=== PATIENT | male | born 1960 | race Hispanic/Latino ===

== ENCOUNTER 2018-08-30 23:17 | Emergency (ER) | payer SELFPAY ==
[2018-08-31] MEDS ORDERED: PROTONIX IV ONE (00:20)
[2018-08-31] MEDS ORDERED: ZOFRAN IV ONE (00:20)
[2018-08-31] MEDS ORDERED: NACL 0.9% 1000 ML 1,000 ML IV ONE (00:20)
--- NOTE | 2018-08-31 00:22 | Emergency Department Report ---
HPI - General Time Seen by Provider: 08/31/18 00:12 - HPI HPI: 58-year-old male presents to the emergency department via EMS from [place], where he is being treated for his psychiatric conditions, with complaint of nausea, vomiting, diarrhea and some abdominal discomfort. The patient says that it started off with copious diarrhea followed by the nausea and vomiting. He has vomited enough to where he has started to vomit up some blood. He denies any fever. He has a past medical history of hypertension and seizures. He is a tobacco smoker but denies any illicit drug use or any alcohol abuse history. He has not taken anything for his symptoms prior to arrival. ED Past Medical Hx - Medications Home Medications: Home Medications Medication Instructions Recorded Confirmed Last Taken Type Ondansetron [Zofran Odt] 4 mg PO Q8HR PRN #16 tab.annie 08/31/18 Unknown Rx RX: Omeprazole 20 mg PO BID #14 tablet. 08/31/18 Unknown Rx ED Review of Systems ROS: Stated complaint: VOMITING BLOOD Other details as noted in HPI Comment: All other systems reviewed and negative Constitutional: denies: chills, fever Eyes: denies: eye pain, vision change ENT: denies: ear pain, throat pain Respiratory: denies: cough, shortness of breath Cardiovascular: denies: chest pain, palpitations Gastrointestinal: abdominal pain, nausea, vomiting, diarrhea, hematemesis Genitourinary: denies: dysuria, discharge Musculoskeletal: denies: back pain, arthralgia Skin: denies: rash, lesions Neurological: denies: headache, weakness Physical Exam - Physical Exam Physical Exam: GENERAL: The patient is well-developed well-nourished. HEENT: Normocephalic. Atraumatic. Patient has moist mucous membranes. EYES: Extraocular motions are intact. Pupils are equal and reactive to light bilaterally. NECK: Supple. Trachea is midline. CHEST/LUNGS: Clear to auscultation. There is no respiratory distress noted. HEART/CARDIOVASCULAR: Regular. There is no tachycardia. There is no obvious murmur. ABDOMEN: Abdomen is soft, nontender. Patient has normal bowel sounds. There is no abdominal distention. SKIN: Skin is warm and dry. NEURO: The patient is awake, alert, and oriented. The patient is cooperative. The patient has no focal neurologic deficits. The patient has normal speech. MUSCULOSKELETAL: There is no tenderness or deformity. Patient has a cast on his right foot and lower extremity. ED Medical Decision Making - Lab Data Result diagrams: 08/31/18 00:46 08/31/18 00:46 - Radiology Data Radiology results: report reviewed, image reviewed interpreted by me: Chest x-ray does not show any pneumothorax, pleural effusion, pneumonia or obvio us focal consolidation. Abdominal x-ray shows nonspecific nonobstructive bowel gas PROCEDURE: CT ABDOMEN PELVIS WO CON TECHNIQUE: Computerized axial tomography of the abdomen and pelvis was performed without intravenous contrast. This study is performed without intravascular contrast material and its sensitivity for abdominal and pelvic pathology, including neoplasms, inflammatio n, abscess, free fluid, thrombosis, arterial dissection and infarction, is reduced compared with a contrast enhanced study. HISTORY: Abd pain, hematemesis COMPARISON: No prior studies are available for comparison. FINDINGS: Visualized lower thorax: No significant abnormality. Liver: Normal size and attenuation. There is a 7.7 millimeter cyst in the left lobe of the liver. Spleen: Normal size and attenuation. Gallbladder and biliary system: Normal. Pancreas: Normal. Adrenals: Normal. Kidneys: There are no kidney stones or ureteral stones. There is no hydronephrosis.. GI tract: There is no bowel obstruction, colitis or enteritis. There is moderate stool in the colon. The appendix is normal.. Lymph nodes and mesentery: Normal. Vasculature: Normal. Bladder: Normal. Reproductive organs: Normal. Peritoneum: There is no ascites or free air, abscess or adenopathy.. Musculoskeletal structures: No significant abnormality. Other: There is a small left inguinal hernia containing fat only.. IMPRESSION: There is a 7.7 millimeter cyst in the left lobe of the liver. There are no kidney stones or ureteral stones. There is no hydronephrosis.. There is no bowel obstruction, colitis or enteritis. There is moderate stool in the colon. The appendix is normal.. There is no ascites or free air, abscess or adenopathy.. There is a small left inguinal hernia containing fat only.. . Transcribed By: CO Dictated By: MUNIR LEAL MD Electronically Authenticated By: MUNIR LEAL MD Signed Date/Time: 08/31/18 0333 - Medical Decision Making Patient presents to the emergency department with complaint of nausea, vomiting, diarrhea and then subsequently some hematemesis. [facility] there has been no further episodes of vomiting or diarrhea or any hematemesis. Patient's labs have been mostly unremarkable. Chest x-ray did not show any pneumonia, pneumothorax, pleural effusions, focal consolidation, or any other acute process. Abdominal x-ray shows nonspecific nonobstructive bowel gas. Abdominal x-ray shows some increased stool volume but otherwise no acute intra-abdominal or pelvic pathology. Patient will be discharged back to regular work with a prescription for a PPI and antiemetics. He has been given referrals for gastroenterology to follow up as soon as he is cleared from [place]. He will be returned to the emergency department with any return or worsening of his symptoms, or any acute distress. - Differential Diagnosis viral syndrome, food poisoning, Sara-Nelson tear, PUD Critical Care Time: No Critical care attestation.: If time is entered above; I have spent that time in minutes in the direct care of this critically ill patient, excluding procedure time. ED Disposition Clinical Impression: Abdominal pain Qualifiers: Abdominal location: generalized Qualified Code(s): R10.84 - Generalized abdominal pain Diarrhea Qualifiers: Diarrhea type: unspecified type Qualified Code(s): R19.7 - Diarrhea, unspecified Nausea & vomiting Qualifiers: Vomiting type: unspecified Vomiting Intractability: non-intractable Qualified Code(s): R11.2 - Nausea with vomiting, unspecified Hematemesis Qualifiers: Nausea presence: with nausea Qualified Code(s): K92.0 - Hematemesis Disposition: DC/TX-[id number] PSY HOSP/PSY UNIT Is pt being admited?: No Condition: Stable Instructions: Acute Nausea and Vomiting (ED), Acute Diarrhea (ED), Abdominal Pain (ED) Additional Instructions: Please follow up with a primary care physician and gastroenterology as soon as you were able to do so. Return to the emergency Department with any worsening of your symptoms or any acute distress. Prescriptions: RX: Omeprazole 20 mg PO BID #14 tablet. Ondansetron [Zofran Odt] 4 mg PO Q8HR PRN #16 tab.rapdis PRN Reason: Nausea Referrals: [facility] [Outside] - [facility] [Provider Group] - [facility] [Provider Group] - [facility] Time of Disposition: 03:57
[2018-08-31 01:13] LABS: Basophils # (Auto) 0.1 K/mm3 (0.0-0.1); Basophils % (Auto) 0.5 % (0.0-1.8); Eosinophils # (Auto) 0.3 K/mm3 (0.0-0.4); Eosinophils % (Auto) 2.2 % (0.0-4.3); Hematocrit 44.2 % (35.5-45.6); Hemoglobin 14.6 gm/dl (11.8-15.2); Lymphocytes % (Auto) 8.9 % (13.4-35.0); Mean Corpuscular HGB Conc 33 % (32-34); Mean Corpuscular Volume 91 fl (84-94); Monocytes # (Auto) 0.8 K/mm3 (0.0-0.8); Platelet Count 201 K/mm3 (140-440); Red Blood Count 4.88 M/mm3 (3.65-5.03); Red Cell Distribution Width 13.8 % (13.2-15.2)
[2018-08-31 01:24] LABS: BUN/Creatinine Ratio 20; Blood Urea Nitrogen 18 mg/dL (9-20); Hemolysis Index 11
[2018-08-31 01:59] LABS: INR 0.86 (0.87-1.13)
[2018-08-31] MEDS ORDERED: ZOFRAN ODT PO ONE (02:15)
[2018-08-31] MEDS ORDERED: PROTONIX PO ONE (02:16)
--- NOTE | 2018-08-31 02:44 | XRay Report ---
FINAL REPORT PROCEDURE: XR ABD SERIES W CXR 1V TECHNIQUE: Abdominal series complete, including supine and upright AP views of the abdomen and front al chest. HISTORY: Abdominal Pain COMPARISON: No prior studies are available for comparison. FINDINGS: Heart: Normal. Mediastinum/Vessels: Normal. Lungs/Pleural space: Normal. Bowel gas pattern: There is no evidence of bowel obstruction. There is no fecal impaction or bowel wa ll thickening. There is fluid in portions of the colon which is nonspecific.. Masses or calcifications: None. Bony structures: No acute osseous abnormality. Other: No free intraperitoneal air. IMPRESSION: Normal heart and lungs. There is no acute intra-abdominal abnormality..
--- NOTE | 2018-08-31 03:33 | Cat Scan Report ---
FINAL REPORT PROCEDURE: CT ABDOMEN PELVIS WO CON TECHNIQUE: Computerized axial tomography of the abdomen and pelvis was performed without intravenous contrast. This study is performed without intravascular contrast material and its sensitivity for ab dominal and pelvic pathology, including neoplasms, inflammation, abscess, free fluid, thrombosis, art erial dissection and infarction, is reduced compared with a contrast enhanced study. HISTORY: Abd pain, hematemesis COMPARISON: No prior studies are available for comparison. FINDINGS: Visualized lower thorax: No significant abnormality. Liver: Normal size and attenuation. There is a 7.7 millimeter cyst in the left lobe of the liver. Spleen: Normal size and attenuation. Gallbladder and biliary system: Normal. Pancreas: Normal. Adrenals: Normal. Kidneys: There are no kidney stones or ureteral stones. There is no hydronephrosis.. GI tract: There is no bowel obstruction, colitis or enteritis. There is moderate stool in the colon. The appendix is normal.. Lymph nodes and mesentery: Normal. Vasculature: Normal. Bladder: Normal. Reproductive organs: Normal. Peritoneum: There is no ascites or free air, abscess or adenopathy.. Musculoskeletal structures: No significant abnormality. Other: There is a small left inguinal hernia containing fat only.. IMPRESSION: There is a 7.7 millimeter cyst in the left lobe of the liver. There are no kidney stones or ureteral stones. There is no hydronephrosis.. There is no bowel obstruction, colitis or enteritis. There is moderate stool in the colon. The append ix is normal.. There is no ascites or free air, abscess or adenopathy.. There is a small left inguinal hernia containing fat only.. .
[2018-08-31 03:48] VITALS: BP 137/87
== END 2018-08-31 04:32 ==
LOC: ED 23:17
DX: R11.2 Nausea with vomiting, unspecified (principal); R19.7 Diarrhea, unspecified; R10.84 Generalized abdominal pain
CPT/HCPCS: 36415; 74022; 74176; 80048; 83690; 85025; 85610; 86850; 86900; 86901; 99285; C9113; J2405; J7030; Q0162